=== PATIENT | male | born 1985 | race Caucasian/White ===

== ENCOUNTER 2018-05-14 21:04 | Emergency (ER) | payer MEDICAID ==
[~2018-05-14] VITALS: Ht 180.3 cm; Wt 86.0 kg
[2018-05-14 21:35] VITALS: BP 147/88
[2018-05-15] MEDS ORDERED: dexamethasone sod phosphate 10mg/ml inj PO STA (00:11)
[2018-05-15] MEDS ORDERED: ondansetron 4mg rapidly disintigrating tab PO ONE (00:15)
[2018-05-15] MEDS ORDERED: CLIN300C70 PO (00:16)
== END 2018-05-15 00:28 | disposition home or self-care (01) ==
LOC: ER 21:25
DX: L03.114 Cellulitis of left upper limb (principal); L03.115 Cellulitis of right lower limb; J02.9 Acute pharyngitis, unspecified; Z79.2 Long term (current) use of antibiotics
CPT/HCPCS: 99283; J1100

== ENCOUNTER 2020-04-30 23:49 | Emergency (ER) | payer SELFPAY ==
--- NOTE | 2020-05-01 00:01 | NUR ---
Pt. not in lobby. Per screener, pt. walked out stating that he needed to "grab something" at around 2355 on 04/30/20. Pt. has not returned since.
== END 2020-05-01 00:25 | disposition left against medical advice (07) ==
LOC: ER 23:49
DX: T78.40XA Allergy, unspecified, initial encounter (principal); Z53.21 Procedure and treatment not carried out due to patient leaving prior to being seen by health care provider; X58.XXXA Exposure to other specified factors, initial encounter

== ENCOUNTER 2021-01-29 22:46 | Emergency (ER) | payer MEDICAID, OTHER ==
[~2021-01-29] VITALS: Ht 180.3 cm; Wt 100.0 kg
[2021-01-29] MEDS ORDERED: CEPH-585 PO (23:14)
[2021-01-29] MEDS ORDERED: ALBU18HF2 IH (23:14)
[2021-01-29] MEDS ORDERED: cephalexin 500mg capsule PO ONE (23:15)
[2021-01-29 23:42] VITALS: BP 144/75
== END 2021-01-30 00:18 | disposition home or self-care (01) ==
LOC: ER 22:46
DX: L03.115 Cellulitis of right lower limb (principal); L03.116 Cellulitis of left lower limb; J45.909 Unspecified asthma, uncomplicated; F17.210 Nicotine dependence, cigarettes, uncomplicated; Z79.899 Other long term (current) drug therapy
CPT/HCPCS: 99283

== ENCOUNTER 2023-04-03 23:22 | Emergency (ER) | payer MEDICAID, OTHER ==
[~2023-04-03] VITALS: Ht 180.3 cm; Wt 104.5 kg
[~2023-04-03 23:22] MED LIST: ALBU18HF2 IH
[2023-04-04 02:01] VITALS: BP 142/60; PULSE 106; RESP 18; TEMP 98.2; O2SAT 98
[2023-04-04] MEDS ORDERED: vancomycin/NS 1 GM ADD-VANTAGE 250 ML IV ONE (02:35)
[2023-04-04] MEDS ORDERED: normal saline 1000ML IV soln IV ONE (02:35)
[2023-04-04] MEDS ORDERED: piperacillin/tazo 3.375gm/50ml 50 ML IV ONE (02:35)
[2023-04-04] MEDS ORDERED: iohexol 300mg/ml 100ml inj. ONE (02:55)
[2023-04-04 02:58] LABS: GLUCOSE, URINE NEGATIVE (Neg); KETONES,URINE NEGATIVE (Neg); LEUKOCYTE ESTERASE ,URINE NEGATIVE (Neg); NITRITES, URINE NEGATIVE (Neg); OCCULT BLOOD,URINE SMALL (Neg); PH,URINE 5.5 (4.8-8.0); PROTEIN,URINE 30 mg/dl (Neg)
[2023-04-04 03:03] LABS: COLOR,URINE DARK YELLOW (Yellow); UA COLLECTION TYPE CLN CATCH MIDSTREAM
[2023-04-04 03:05] LABS: CLARITY,URINE SLIGHTLY CLOUDY (Clear)
[2023-04-04 03:09] LABS: BACTERIA,URINE FEW /HPF (Neg); FINE GRANULAR CAST 0-3 /LPF (NEGATIVE); SQUAMOUS EPITHELIAL CELL,UR FEW /LPF (FEW)
[2023-04-04 03:22] LABS: URINE AMPHETAMINE SCREEN POSITIVE (Neg); URINE BARBITUATE SCREEN NEGATIVE (Neg); URINE BENZODIAZEPINES SCREEN POSITIVE (Neg); URINE CANNABINOID SCREEN POSITIVE (Neg); URINE COCAINE SCREEN NEGATIVE (Neg); URINE METHADONE SCREEN NEGATIVE (Neg); URINE OPIATE SCREEN NEGATIVE (Neg); URINE PHENCYCLIDINE SCREEN NEGATIVE (Neg)
[2023-04-04] MEDS ORDERED: sulfamethoxazole/trimethoprim DS (800/160mg) tablet PO ONE (03:30)
[2023-04-04] MEDS ORDERED: ondansetron 4mg rapidly disintigrating tab PO ONE (03:30)
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
[2023-04-04] MEDS ORDERED: DOXYCYCLINE 100MG CAPSULE PO STA (03:48)
[2023-04-04] MEDS ORDERED: DOXY-356 PO (03:50)
[2023-04-04] MEDS ORDERED: SULF1TAB49 PO (03:50)
[2023-04-04] MEDS ORDERED: ONDA8TAB13 PO (03:50)
== END 2023-04-04 04:11 | disposition left against medical advice (07) ==
LOC: ER 23:22
DX: L03.116 Cellulitis of left lower limb (principal); J45.909 Unspecified asthma, uncomplicated; F12.90 Cannabis use, unspecified, uncomplicated; Z98.890 Other specified postprocedural states
CPT/HCPCS: 71045; 80305; 81001; 87088; 93005; 99285; J7030; J3490; Q9967